=== PATIENT | female | born 1950 | race Caucasian/White ===

== ENCOUNTER 2018-05-27 00:46 | Outpatient (CLI) | payer MEDICARE, SELFPAY ==
--- NOTE | 2018-05-27 08:30 | DI.MAMMO_ITS ---
SYMPTOMS/DIAGNOSIS: SCREENING, Z12.31, FAMILY HX, Z80.3 MAMMOGRAM: Mammograms were interpreted according to the usual protocol including computer analysis with CAD system, tomosynthesis and C view imaging. Comparison with prior examinations. Breast density C. No suspicious masses or microcalcifications are seen. There is no definite evidence of malignancy. IMPRESSION: Negative mammogram. Routine screening is recommended. Category I. MQSA ASSESSMENT OF FINDINGS: Negative. Category 1. Patient will receive a letter notifying them of these results. Bi-RADS category C. The breasts are heterogeneously dense, which may obscure small masses.
[2018-05-27 09:21] LABS: ALT 24 U/L (12-78); AST 20 U/L (15-37); Albumin 3.9 g/dL (3.4-5.0); Alkaline Phosphatase 82 U/L (46-116); Anion Gap 8.6 mmol/L (3-11); BUN 19 mg/dL (7-18); Bilirubin, Total 0.6 mg/dL (0.2-1.0); CO2 28.4 mmol/L (21.0-32.0); CREATININE 1.02 mg/dL (0.55-1.02); Calcium 9.4 mg/dL (8.5-10.1); Chloride 104 mmol/L (98-107); Estimated GFR 54.39 (mL/min/1.73m2); Glucose 83 mg/dL (70-100); Potassium 4.3 mmol/L (3.5-5.1); Sodium 141 mmol/L (136-145); Total Protein 7.8 g/dL (6.4-8.2)
== END 2018-05-27 01:06 ==
PROVIDERS: PCP Family Medicine; Visit Provider Family Medicine
DX: I10 Essential (primary) hypertension (principal); Z12.31 Encounter for screening mammogram for malignant neoplasm of breast; Z80.3 Family history of malignant neoplasm of breast
CPT/HCPCS: 36415; 77063; 77067; 80053

== ENCOUNTER 2019-07-03 03:07 | Outpatient (CLI) | payer MEDICARE, SELFPAY ==
[2019-07-03 08:28] LABS: ALT 25 U/L (14-59); AST 22 U/L (15-37); Albumin 3.9 g/dL (3.4-5.0); Alkaline Phosphatase 79 U/L (46-116); Anion Gap 9.1 mmol/L (3-11); BUN 14 mg/dL (7-18); Bilirubin, Total 0.3 mg/dL (0.2-1.0); CO2 27.9 mmol/L (21.0-32.0); CREATININE 0.97 mg/dL (0.55-1.02); Calcium 8.9 mg/dL (8.5-10.1); Chloride 106 mmol/L (98-107); Estimated GFR 57.46 (mL/min/1.73m2); Glucose 85 mg/dL (74-106); Potassium 4.5 mmol/L (3.5-5.1); Sodium 143 mmol/L (136-145); Total Protein 7.4 g/dL (6.4-8.2)
--- NOTE | 2019-07-03 09:30 | DI.MAMMO_ITS ---
EXAM: MG MAMMO SCREENING CLINICAL HISTORY: screening Z12.31. TECHNIQUE: Bilateral full field digital CC and MLO mammographic images were obtained with 3D tomosyn thesis and utilizing computer aided detection (CAD). COMPARISON: Available for comparison. FINDINGS: Masses/Architectural Distortion: None seen. Microcalcifications: No suspicious pleomorphic-type are seen. Skin Thickening/Nipple Retraction: None. IMPRESSION: 1. No significant interval change with no specific features of malignancy noted. 2. Unless there is more urgent need, screening mammography is recommended, as per [place] [employer] guidelines. ACR BI-RAD Category- 1 Negative Breast Density - Category C - Heterogeneously dense The mammogram demonstrates the patient's breast tissue is dense. Dense breast tissue is very common a nd is not abnormal but dense breast tissue can make it harder to find cancer on a mammogram. Also, de nse breast tissue may increase their breast cancer risk. This information about the result of the [facility] mogram report was provided to the patient to raise their awareness. Use this report when you speak wi th the patient about their risks for breast cancer, which includes their family history. At that time , you may recommend for more screening tests (Ultrasound or MRI) as they might be useful based on the ir risk. A negative radiographic report should not delay biopsy if a dominant or clinically suspicious mass is present. Up to ten percent of cancers are not identified on mammography. A negative report may reinforce clinical impression. Adenosis and dense breasts may obscure an underlying neoplasm. False positive reports average 6 to 10%. Patient will receive a letter notifying them of these results.
== END 2019-07-03 03:27 ==
PROVIDERS: PCP Family Medicine; Visit Provider Family Medicine
DX: Z12.31 Encounter for screening mammogram for malignant neoplasm of breast (principal); I10 Essential (primary) hypertension
CPT/HCPCS: 36415; 77063; 77067; 80053

== ENCOUNTER 2020-03-12 07:39 | Outpatient (CLI) | payer MEDICARE, SELFPAY ==
[2020-03-13 12:52] LABS: COVID-19 RT-PCR Result NEGATIVE (Negative)
== END 2020-03-12 07:59 ==
PROVIDERS: PCP Family Medicine; Visit Provider Ophthalmology Retina Specialist
DX: Z01.812 Encounter for preprocedural laboratory examination (principal); Z11.59 Encounter for screening for other viral diseases
CPT/HCPCS: U0003

== ENCOUNTER 2020-04-16 03:32 | Outpatient (CLI) | payer MEDICARE, SELFPAY ==
[2020-04-20 08:55] LABS: SARS-CoV-2 RNA Source Nasal/Nares
[2020-04-20 08:56] LABS: SARS-CoV-2 RNA Not Detected (NotDetected)
== END 2020-04-16 03:52 ==
PROVIDERS: PCP Family Medicine; Visit Provider Ophthalmology Retina Specialist
DX: Z01.818 Encounter for other preprocedural examination (principal)
CPT/HCPCS: U0003

== ENCOUNTER 2020-07-05 00:43 | Outpatient (CLI) | payer MEDICARE, SELFPAY ==
--- NOTE | 2020-07-05 06:30 | DI.MAMMO_ITS ---
EXAM: MG MAMMO SCREENING CLINICAL HISTORY: screening,z12.39. TECHNIQUE: Bilateral full field digital CC and MLO mammographic images were obtained with 3D tomosyn thesis and utilizing computer aided detection (CAD). COMPARISON: Prior mammograms dating back to 2011, the most recent being June 2019. Her mother w as diagnosed breast cancer premenopausal. FINDINGS: Fibroglandular tissue is moderately dense, this decreasing the sensitivity mammogram for finding hidd en underlying lesions. No new significant radiograph findings in left breast. In the right breast there is an area of asymm etric density evident on the MLO view slightly more prominent than previous studies located 6 centime ebonie in from the nipple. No malignant-appearing microcalcification groups in this region. No new sk in thickening. No retraction IMPRESSION: No radiographic evidence of malignancy left breast. Asymmetric area of density right breast MLO view as described above. Recommend spot compression MLO and straight lateral 3D views. Also possible ultrasound. BI-RADS Category 0 - Assessment Incomplete: Need additional imaging evaluation Breast Density - Category C - Heterogeneously dense Breast density Category C or D implies that the patient has dense breast tissue. Dense breast tissue can make it harder to find cancer on a mammogram. Dense breast tissue is also associated with an incr eased risk of breast cancer. This information about the result of the mammogram report was provided to the patient to raise their awareness. Use this report when you speak with the patient about their risks for breast cancer, which includes their family history. At that time, you may recommend additional screening tests (Ultrasoun d or MRI) as these tests may add significant information. A negative radiographic report should not delay biopsy if a dominant or clinically suspicious mass is present. Up to ten percent of cancers are not identified on mammography. A negative report may reinforce clinical impression. Adenosis and dense breasts may obscure an underlying neoplasm. False positive reports average 6 to 10%. Patient will receive a letter notifying them of these results.
== END 2020-07-05 00:44 ==
LOC: DI 00:43
PROVIDERS: PCP Family Medicine; Visit Provider Physician Assistant
DX: Z12.31 Encounter for screening mammogram for malignant neoplasm of breast (principal); R92.8 Other abnormal and inconclusive findings on diagnostic imaging of breast; Z80.3 Family history of malignant neoplasm of breast
CPT/HCPCS: 77063; 77067

== ENCOUNTER 2020-07-05 01:50 | Outpatient (CLI) | payer MEDICARE, SELFPAY ==
[2020-07-05 09:26] LABS: ALT 25 U/L (14-59); AST 19 U/L (15-37); Albumin 3.7 g/dL (3.4-5.0); Alkaline Phosphatase 75 U/L (46-116); Anion Gap 5.8 mmol/L (3-11); BUN 13 mg/dL (7-18); Bilirubin, Total 0.3 mg/dL (0.2-1.0); CO2 28.2 mmol/L (21.0-32.0); CREATININE 0.9 mg/dL (0.55-1.02); Calcium 9.2 mg/dL (8.5-10.1); Calculated LDL 103 mg/dL (<100); Chloride 104 mmol/L (98-107); Cholesterol 204 mg/dL (<200); Glucose 87 mg/dL (74-106); HDL Cholesterol 87 mg/dL (40-60); Sodium 138 mmol/L (136-145); Total Protein 7.6 g/dL (6.4-8.2); Triglyceride 72 mg/dL (<150)
== END 2020-07-05 01:51 | disposition home or self-care (01) ==
LOC: LBO 01:50
PROVIDERS: Physician Assistant; PCP Family Medicine; Visit Provider Nurse Practitioner Family
DX: I10 Essential (primary) hypertension (principal)
CPT/HCPCS: 36415; 80053; 80061

== ENCOUNTER 2020-07-09 01:03 | Outpatient (CLI) | payer MEDICARE, SELFPAY ==
--- NOTE | 2020-07-09 09:15 | DI.MAMMO_ITS ---
EXAM: MG MAMMO SCREEN CALL BACK UNI CLINICAL HISTORY: F/U MAMMO, RT ASYMMETRIC DENSITY, TECHNIQUE: Spot compression views with tomographic imaging were performed. COMPARISON: 2011 through 05 July 2020 FINDINGS: An MLO spot compression view was performed of the upper and central right breast for an area of asymm etric density. No suspicious masses or suspicious microcalcifications are seen. No persistent abnormality is seen on the additional views performed. The findings are consistent wit h overlying fibroglandular tissue. There has been no significant change from prior exams. IMPRESSION: BI-RADS Category 1, Negative Yearly screening mammography is recommended. Breast Density - Category C - Heterogeneously dense .
== END 2020-07-09 01:04 ==
PROVIDERS: PCP Family Medicine; Visit Provider Physician Assistant
DX: Z12.31 Encounter for screening mammogram for malignant neoplasm of breast (principal); R92.8 Other abnormal and inconclusive findings on diagnostic imaging of breast; N64.59 Other signs and symptoms in breast
CPT/HCPCS: 77063; 77067

== ENCOUNTER 2020-09-27 06:55 | Day surgery (SDC) | payer MEDICARE, SELFPAY ==
[2020-09-27 07:11] VITALS: BP 135/73; PULSE 56; RESP 16; TEMP 35.9; O2SAT 99
[2020-09-27] MEDS: Tropicam./Phenyleph. (1/2.5%) 5 ML BTL OD ×3 (07:24→07:34)
--- NOTE | 2020-09-27 07:31 | W.ANESPRE ---
General Info Date of Service Date Performed: 09/27/20 Height: 5 ft 1.02 in Weight: 70.76 kg Body Mass Index (BMI): 29.4 Surgical Procedure: Operation Date: 09/27/20 08:40 Proposed Procedures Side Surgeon p Cataract Extraction with IOL Implant Right Montez Angeles MD Meds Allergies and Home Medications Allergies Allergy/AdvReac Type Severity Reaction Status Date / Time No Known Allergies Allergy Unverified 09/22/20 14:46 Home Medication Medication Instructions Recorded enalapril maleate [Vasotec] 5 mg PO DAILY 09/27/20 Current Visit Medications: Current Medications Generic Name Dose Route Start Last Admin Trade Name Freq PRN Reason Stop Dose Admin Acetaminophen 1,000 mg 09/27/20 06:00 Acetaminophen 500 Mg Tab PO Q4H PRN PRN Miscellaneous Medication 0 ml 09/27/20 06:00 Prednisolone 1%, Moxifloxacin 0.5%, Nepafenac 0.1% 5ml Btl OD DIRECTED NO Miscellaneous Medication 0 ml 09/27/20 06:00 09/27/20 07:24 Tropicam./Phenyleph. (1/2.5%) 5 Ml Btl OD 1 drp DIRECTED NO Administration Tetracaine HCl 0 ml 09/27/20 06:00 Tetracaine 0.5% 4 Ml Btl OD DIRECTED NO PFSH Active Problems Active Problems: Problem Status Onset Code Nuclear sclerotic cataract of right eye H25.11 Essential hypertension I10 Family history of breast cancer 02/04/14 Z80.3 Raynauds syndrome I73.00 Abnormal mammogram R92.8 Medical History Medical History Diverticulosis Menopause (05/16/11) Smoker unmotivated to quit (05/13/15) quit in August 2019 Surgical History Surgical History (Updated 09/22/20 @ 14:45 by Danny Dotson) section x 2 Hx of eye surgery Tobacco Smoking/Tobacco Use Status: Former Tobacco Use Passive smoking exposure: Yes Quit Status: has quit before Second hand exposure: Yes Alcohol Alcohol Intake: current Alcohol intake frequency: 0-2 drinks per day Alcohol type: hard liquor Substance Use Substance use: Never Substance use type: does not use Vital Signs and Lab Results Vital Signs Most Recent Vital Signs in EMR: Most Recent Vital Signs Temp Pulse Resp BP Pulse Ox 35.9 C L 56 L 16 135/73 99 09/27/20 07:11 09/27/20 07:11 09/27/20 07:11 09/27/20 07:11 09/27/20 07:11 Lab Results Blood Type / Crossmatch: No Data to Display Complete Blood Count: White Blood Count 7.84 k/cumm (4.4-10.8) 05/24/17 07:49 05/24/17 Red Blood Count 4.33 m/cumm (4.00-5.20) 05/24/17 07:49 05/24/17 Hemoglobin 13.9 g/dL (12.0-15.5) 05/24/17 07:49 05/24/17 Hematocrit 41.0 % (36.0-46.0) 05/24/17 07:49 05/24/17 Platelet Count 289 x1000/uL (130-400) 05/24/17 07:49 05/24/17 Complete Metabolic Panel: Sodium Level 138 mmol/L (136-145) 07/05/20 07:54 07/05/20 Potassium Level 5.0 mmol/L (3.5-5.1) 07/05/20 07:54 07/05/20 Chloride Level 104 mmol/L (98-107) 07/05/20 07:54 07/05/20 Carbon Dioxide Level 28.2 mmol/L (21.0-32.0) 07/05/20 07:54 07/05/20 Blood Urea Nitrogen 13 mg/dL (7-18) 07/05/20 07:54 07/05/20 Creatinine 0.9 mg/dL (0.55-1.02) 07/05/20 07:54 07/05/20 Calcium Level 9.2 mg/dL (8.5-10.1) 07/05/20 07:54 07/05/20 Albumin 3.7 g/dL (3.4-5.0) 07/05/20 07:54 07/05/20 Glucose Level 87 mg/dL (74-106) 07/05/20 07:54 07/05/20 Liver Function Panel: Alanine Aminotransferase (ALT/SGPT) 25 U/L (14-59) 07/05/20 07:54 07/05/20 Aspartate Amino Transf (AST/SGOT) 19 U/L (15-37) 07/05/20 07:54 07/05/20 Coagulation Panel: No Data to Display Cardiac Panel: No Data to Display Arterial Blood Gas: No Data to Display Venous Blood Gas: No Data to Display Pancreas Panel: No Data to Display Thyroid Panel: No Data to Display Infectious Disease: Coronavirus (COVID-19)(PCR) Not Applicable 03/12/20 09:51 03/12/20 Blood Cultures: No Data to Display Toxicology Panel: No Data to Display Anesthesia Assessment and Plan Anesthesia History Personal History: No History of Anesthesia Complications Family History: No Family History of Anesthesia Complications Exercise Tolerance Exercise Tolerance: Metabolic Equivalents>4 Pertinent Negatives Pertinent Negatives: No Symptoms of GERD Cardiac & Pulmonary Exam Cardiac Exam: Normal S1/S2 Heart Sounds Pulmonary Exam: Clear Bilateral Breath Sounds Airway Exam Known Difficult Airway: No Mallampati Class: 1 Mouth Opening: Normal (> 3cm) Thyromental Distance: Greater than 3 cm Neck Range of Motion: Full ROM Neck Circumference: Normal Teeth Condition: Loose or Chipped and Dental Caries ASA Classification ASA Score: ASA 2 Emergency Case?: No NPO Status NPO Status: NPO Clears >2 hours, Solids >8 hours Anesthesia Plan Anesthesia Technique: MAC Anesthesia Airway Planned: Natural Airway Monitors Used: Standard Monitors
[2020-09-27 07:34] VITALS: BMI 29.4
[2020-09-27] MEDS: Balanced Salt Soln.-PLUS 500 ML BAG (08:31)
[2020-09-27] MEDS: Tetracaine 0.5% 4 ML BTL OD (08:31)
[2020-09-27] MEDS: Duovisc Viscoelastic System EACH 1 EACH (08:32)
[2020-09-27] MEDS: Lidocaine 2% Jelly 6 ML SYR (08:33)
[2020-09-27] MEDS: Lidocaine 1% Pres-Free 5 ML VIAL (08:33)
[2020-09-27] MEDS: Povidone-Iodine Ophth 30 ML BTL (08:35)
[2020-09-27] MEDS: Trypan Blue 0.06% 0.5 ML SYR (08:35)
--- NOTE | 2020-09-27 08:53 | W.PM.DSUDISC ---
Discharge Plan Disposition Patient Disposition: HOME Condition: Good Discharge Details Attending Provider: Montez Angeles Primary Care Provider: Faustino Harmon Home Meds and New Rx's Prescriptions: No Action enalapril maleate [Vasotec] 5 mg tablet 5 mg PO DAILY RF: 0 Discharge Instructions Stand Alone Forms: Post-op Block Cataract, Post-op Topical Cataract, Press Ganey (DSU) Discharge Orders Discharge Orders: Discharge Order (Routine); Ordered 09/27/20 Ordered By: Montez Angeles DS: Diagnosis Discharge Diagnosis (1) Nuclear sclerotic cataract of right eye: Status: Resolved
--- NOTE | 2020-09-27 08:54 | ROE_ITS ---
Date of service: 09/27/20 Time of Service: 08:54 Operative Note Operative Note DATE OF PROCEDURE: 09/27/20 PRE-OP DIAGNOSIS: Nuclear cataract, right eye High hyperopia POST-OP DIAGNOSIS: same PROCEDURE: Cataract extraction using phacoemulsification with intraocular lens implantation, right eye, using capsular staining with Vision Blue SURGEON: Montez Angeles Refer to Anesthesia Record PATHOLOGY: none sent COMPLICATIONS: None Patient was transported to: same day Patient's condition: stable Implants: [employer] / [employer] Tecnis [id number] Indications: Progressive visual loss due to cataract, right eye Procedure Description: CATARACT SURGERY OPERATIVE REPORT PREOPERATIVE DIAGNOSIS: 1. Nuclear cataract, right eye 2. Poor red reflex secondary to #1 3. High hyperopia POSTOPERATIVE DIAGNOSIS: Same OPERATION: 1. Cataract extraction using phacoemulsification with posterior chamber intraocular lens implant, right eye. 2. Capsular staining with Vision Blue IOL: IOL Rag Cutting Machine Tender/Model: [employer] / CARLA Tecnis [id number] IOL Power: + 29.5 diopters IOL Serial Number: [id number] Optic Diameter: 6.0mm Haptic/Overall Diameter: 13.0mm PHACO INFO: Cisco Mokaurion Vision System with OZil and Active Fluidics Cumulative Dispersed Energy (CDE): 16.95 seconds SURGEON: Montez Angeles MD, BREANA ANESTHESIA: Monitored Anesthesia Care (MAC), with local sub-tenon's anesthetic infiltration COMPLICATIONS: None SPECIMENS: None INDICATIONS FOR PROCEDURE: The patient is a 69-year-old lady with history of diminished visual acuity in her right eye secondary to the development of nuclear cataract. She has a history of high hyperopia. She has undergone retinal detachment repair in the left eye and subsequent cataract surgery in the left eye in 2016. She now presents for cataract surgery of the right eye. PROCEDURE: The correct surgical eye was identified and marked as the right eye and the pupil was dilated in the preoperative area using mydriatics and cycloplegics. The dilated pupil size was 6.0 mm. Oral sedation was administered in the form of an Imprimis MKO Melt (midazolam 3mg/ketamine 25mg/ondansetron 2mg). The patient was brought to the operating room where cardiopulmonary monitoring was instituted and surgical time-out was performed, confirming the correct operative eye and IOL power. Topical anesthesia was administered and ophthalmic povidone-iodine 5% was instilled into the conjunctival fornices. Lidocaine gel was applied to the cornea and the penny-ocular area was prepped with Betadine 10% solution and draped in the usual sterile fashion for intraocular surgery, including an aperture drape. A Tegaderm transparent film dressing was cut in half and used to cover the lashes and lid margins. Care was taken to sequester the lashes and lid margins under the Tegaderm dressing. A lid speculum was placed between the lids of the operative eye and the Davy-Steven operating microscope was maneuvered into position. Trisha scissors were then used to make a conjunctival buttonhole approximately 6mm posterior to the limbus in the inferonasal quadrant. Blunt dissection was carried out to expose bare sclera, and a blunt-tipped sub-tenon?s anesthesia cannula was introduced and passed posteriorly along the globe where non- preserved plain lidocaine was injected into posterior sub-Tenon?s space. A sideport knife was used to make a paracentesis port inferotemporally. Intraocular phenylephrine/lidocaine was injected into the anterior chamber. Air was injected into the anterior chamber, followed by Vision Blue, which was painted over the anterior capsule and then irrigated out with BSS. The anterior chamber was filled with viscoelastic. A 2.4mm keratome knife was used to create a half-thickness groove at the limbus and then to construct a three-plane near- clear corneal tunnel extending 2.0mm into clear cornea superiortemporally. A flap was raised on the anterior capsule and capsulorhexis forceps were used to complete a continuous curvilinear capsulorhexis of 4.8 mm. The anterior chamber was noted to be quite shallow. Abundant dispersive viscoelastic was used to protect the corneal endothelium. Balanced salt solution was then used to perform cortical cleaving hydrodissection and nuclear hydrodelineation until the lens could be freely rotated within the capsular bag. The lens nucleus was then disassembled and removed within the capsular bag and iris plane using phacoemulsification. Residual cortical material was removed using the I/A handpiece. The posterior capsule was carefully polished to remove as much residual lens epithelial cells as safely possible. The capsular bag was then inflated and the anterior chamber deepened with viscoelastic. The lens implant described above was inserted into the capsular bag using the CARLA [place] Injector. A Kuglen hook was used to dial the IOL into position. Residual viscoelastic was then removed first from posterior to the IOL, then from the anterior chamber using the I/A handpiece. The lens implant was noted to center nicely within the capsular bag. The incisions were stromally hydrated, and the anterior chamber was reformed using BSS. Then 0.5cc of moxifloxacin 1.0mg/ml were injected into the capsular bag and anterior chamber. The incisions were checked with a Weck spear and found to be secure. Several drops of ophthalmic povidone-iodine 5% were then applied to the eye followed by two drops of Imprimis combination prednisolone/moxifloxacin/nepafenac solution. The drapes were removed and a clear plastic protective eye shield was placed over the eye. The patient was then returned to Same Day Surgery in stable condition.
[2020-09-27 08:59] VITALS: BP 136/81; PULSE 56; RESP 16; TEMP 36.2; O2SAT 100
--- NOTE | 2020-09-27 09:16 | W.ANESPOSTOP ---
Postoperative Evaluation Date, Time and Location Date Performed: 09/27/20 Time Performed: 09:16 Patient Location: Day Surgery Unit Vital Signs Most Recent Imported Vital Signs: Most Recent Vital Signs Temp Pulse Resp BP Pulse Ox 36.2 C L 56 L 16 136/81 100 09/27/20 08:59 09/27/20 08:59 09/27/20 08:59 09/27/20 08:59 09/27/20 08:59 Assessment Mental Status: Awake (Alert & Oriented to Patient Baseline) Airway and Respiratory Function: Patent airway with normal (patient baseline) respiratory exam Cardiovascular Function: Hemodynamically Stable Hydration Status: Adequately Hydrated Nausea & Vomiting: No Nausea or Vomiting Pain: Pt. Denies Any Pain Peripheral Nerve Block: Other (Local by Dr. Angeles)
== END 2020-09-27 09:20 | disposition home or self-care (01) ==
PROVIDERS: PCP Family Medicine; Visit Provider Ophthalmology
PROC: (CPT 66982; principal; 2020-09-27 08:30)
DX: H25.11 Age-related nuclear cataract, right eye (principal); H52.01 Hypermetropia, right eye; Z98.42 Cataract extraction status, left eye; Z96.1 Presence of intraocular lens; Z86.69 Personal history of other diseases of the nervous system and sense organs
CPT/HCPCS: 66982; V2632

== ENCOUNTER 2021-08-08 02:02 | Outpatient (CLI) | payer MEDICARE, SELFPAY ==
--- NOTE | 2021-08-08 06:30 | DI.MAMMO_ITS ---
Exam(s) MAMMO SCREENING EXAM: MAMMO SCREENING CLINICAL HISTORY: screening,z12.39. TECHNIQUE: Bilateral full field digital CC and MLO mammographic images were obtained with 3D tomosyn thesis and utilizing computer aided detection (CAD). COMPARISON: Prior mammograms were reviewed, the most recent being June 2020. Significant family history. Her mother was diagnosed with breast cancer prior to age 50. FINDINGS: There has been no significant change in the appearance and distribution of the fibroglandular tissue. There are no new spiculated masses nor malignant appearing microcalcification groups. In the left breast on 3D cc imaging there is a asymmetric density-possible new nodule which measures 4 millimeters and is located lower outer quadrant. Has appearance of a possible benign lymph node wa s not previously present and is not a typical location for a benign lymph node. There are no malignant-appearing microcalcification groups in either breast. There is no significant architectural distortion nor skin thickening-retraction. IMPRESSION: 1. No radiographic evidence of malignancy in right breast. 2. Left breast asymmetric density-possible nodule. Spot compression view and ultrasound recommended BI-RADS Category 0 - Assessment Incomplete: Need additional imaging evaluation Breast Density - Category C - Heterogeneously dense Breast density Category C or D implies that the patient has dense breast tissue. Dense breast tissue can make it harder to find cancer on a mammogram. Dense breast tissue is also associated with an incr eased risk of breast cancer. This information about the result of the mammogram report was provided to the patient to raise their awareness. Use this report when you speak with the patient about their risks for breast cancer, which includes their family history. At that time, you may recommend additional screening tests (Ultrasoun d or MRI) as these tests may add significant information. A negative radiographic report should not delay biopsy if a dominant or clinically suspicious mass is present. Up to ten percent of cancers are not identified on mammography. A negative report may reinforce clinical impression. Adenosis and dense breasts may obscure an underlying neoplasm. False positive reports average 6 to 10%. Patient will receive a letter notifying them of these results.
== END 2021-08-08 02:22 ==
PROVIDERS: PCP Nurse Practitioner; Visit Provider Nurse Practitioner
DX: Z12.31 Encounter for screening mammogram for malignant neoplasm of breast (principal); R92.8 Other abnormal and inconclusive findings on diagnostic imaging of breast; Z80.3 Family history of malignant neoplasm of breast
CPT/HCPCS: 77063; 77067

== ENCOUNTER 2021-08-08 03:15 | Outpatient (CLI) | payer MEDICARE, SELFPAY ==
[2021-08-08 08:19] LABS: BUN 18 mg/dL (7-18); Calcium 9.1 mg/dL (8.5-10.1); Chloride 102 mmol/L (98-107); Estimated GFR 55.14 (mL/min/1.73m2); Glucose 84 mg/dL (74-106); Potassium 4.6 mmol/L (3.5-5.1); Sodium 137 mmol/L (136-145)
== END 2021-08-08 03:16 | disposition home or self-care (01) ==
LOC: LBO 03:15
PROVIDERS: PCP Nurse Practitioner; Visit Provider Nurse Practitioner
DX: I10 Essential (primary) hypertension (principal)
CPT/HCPCS: 36415; 80048

== ENCOUNTER 2021-08-10 00:36 | Outpatient (CLI) | payer MEDICARE, SELFPAY ==
--- NOTE | 2021-08-10 13:30 | DI.MAMMO_ITS ---
Exam(s) MG MAMMO SCREEN CALL BACK UNI US BREAST LT COMPLETE EXAM: MG MAMMO SCREEN CALL BACK UNI -LEFT AND COMPLETE LEFT BREAST ULTRASOUND CLINICAL HISTORY: F/U ABNL MAMMO, ASYMMETRIC DENSITY-POSSIBLE NODULE, LT BREAST. TECHNIQUE: Unilateral spot mammographic images obtained with 3D tomosynthesisand utilizing computer aided detection (CAD). . Complete LEFT breast Ultrasound was also performed, including all 4 quadrants, the retroareolar regio n, and the ipsilateral axilla. COMPARISON: Prior mammograms were reviewed. This additional imaging was performed due to findings described on the recent screening mammogram of . FINDINGS: Additional mammographic views performed todayrender this area less concerning. Ultrasound performed today reveals significant findings in all 4 quadrants.. No ipsilateral adenopat hy. IMPRESSION: No radiographic evidence of malignancy in the left breast. Also negative complete left breast ultrasound. Appropriate follow-up is to keep this patient on a yearly mammogram schedule, with earlier imaging i f a self detected breast changes noted.. The patient was informed of these findings and recommendations prior to leaving the department today. BI-RADS Category 2 - Benign Findings Breast Density - Category C - Heterogeneously dense Breast density Category C or D implies that the patient has dense breast tissue. Dense breast tissue can make it harder to find cancer on a mammogram. Dense breast tissue is also associated with an incr eased risk of breast cancer. This information about the result of the mammogram report was provided to the patient to raise their awareness. Use this report when you speak with the patient about their risks for breast cancer, which includes their family history. At that time, you may recommend additional screening tests (Ultrasoun d or MRI) as these tests may add significant information. A negative radiographic report should not delay biopsy if a dominant or clinically suspicious mass is present. Up to ten percent of cancers are not identified on mammography. A negative report may reinforce clinical impression. Adenosis and dense breasts may obscure an underlying neoplasm. False positive reports average 6 to 10%. Patient will receive a letter notifying them of these results.
== END 2021-08-10 00:56 ==
PROVIDERS: PCP Nurse Practitioner; Visit Provider Nurse Practitioner
DX: R92.8 Other abnormal and inconclusive findings on diagnostic imaging of breast (principal)
CPT/HCPCS: 76642; 77063; 77067

== ENCOUNTER 2022-07-18 09:15 | Outpatient (CLI) | payer MEDICARE, SELFPAY | END 2022-07-18 09:16 | disposition home or self-care (01) | PROVIDERS: PCP Nurse Practitioner Family; Visit Provider Nurse Practitioner Family | DX: I49.9 Cardiac arrhythmia, unspecified (principal) | CPT/HCPCS: 93246 ==

== ENCOUNTER 2022-08-10 08:09 | Outpatient (CLI) | payer MEDICARE, SELFPAY ==
--- NOTE | 2022-08-10 12:46 | W.CARDEVENT ---
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 Minimum was 52, maximum 128 There were very rare ventricular ectopic beats There were moderately frequent atrial premature beats comprising 4.59% of total. There were multiple self-limited atrial runs. The majority of these were 45 beats in duration. There was no atrial fibrillation no high-grade AV block, no pauses greater than 3 seconds Patient had 1 symptomatic event which did not correlate to any dysrhythmia
== END 2022-08-10 08:10 | disposition home or self-care (01) ==
LOC: CARDOPNVT 08:09
PROVIDERS: PCP Nurse Practitioner Family; Visit Provider Internal Medicine Cardiovascular Disease
DX: I49.9 Cardiac arrhythmia, unspecified (principal); I49.1 Atrial premature depolarization
CPT/HCPCS: 93248

== ENCOUNTER 2022-08-14 01:46 | Outpatient (CLI) | payer MEDICARE, SELFPAY ==
--- NOTE | 2022-08-14 07:00 | DI.MAMMO_ITS ---
Exam(s) MAMMO SCREENING EXAM: MAMMO SCREENING CLINICAL HISTORY: screening,z12.39 TECHNIQUE: Mammograms were interpreted according to the usual protocol including computer analysis w Posterous CAD system, tomosynthesis and C-view imaging. COMPARISON: 2013 through 2021 FINDINGS: The breasts are composed of heterogeneously dense fibroglandular densities, Breast Density category C . No suspicious masses or suspicious microcalcifications are seen. No skin thickening or abnormal axillary lymph nodes are seen. There has been no significant change from prior exams. IMPRESSION: BI-RADS Category 1, Negative mammogram. Yearly screening mammography is recommended. Breast Density Category C, heterogeneously Dense. The mammogram demonstrates the patient's breast tissue is dense. Dense breast tissue is very common a nd is not abnormal but dense breast tissue can make it harder to find cancer on a mammogram. Also, de nse breast tissue may increase breast cancer risk. This information about the result of the mammogram report was provided to the patient to raise their awareness. Use this report when you speak with the patient about their risks for breast cancer, which includes their family history. At that time, you may recommend additional screening tests (Ultrasound or MRI) as they might be useful based on their r isk. A negative radiographic report should not delay biopsy if a dominant or clinically suspicious mass is present. Up to ten percent of cancers are not identified on mammography. A negative report may reinforce clinical impression. Adenosis and dense breasts may obscure an underlying neoplasm. False positive reports average 6 to 10%.
== END 2022-08-14 02:06 ==
LOC: DI 01:47
PROVIDERS: PCP Nurse Practitioner Family; Visit Provider Nurse Practitioner Family
DX: Z12.31 Encounter for screening mammogram for malignant neoplasm of breast (principal)
CPT/HCPCS: 77063; 77067

== ENCOUNTER 2022-08-14 02:32 | Outpatient (CLI) | payer MEDICARE, SELFPAY ==
[2022-08-14 07:38] LABS: HCT 38.3 % (36.0-46.0); HGB 12.9 g/dL (11.2-15.7); MCH 29.5 pg (27.0-33.0); MCHC 33.7 % (32.0-36.0); MCV 88 fL (80-95); MPV 9.7 fL (8.0-11.0); Platelet Count 321 10^3/uL (130-400); RBC 4.37 10^6/uL (3.93-5.22); RDW 13.1 % (11.7-14.6); RDW-SD 42.2 fL; WBC 8.22 10^3/uL (4.4-10.8)
[2022-08-14 08:08] LABS: ALT 25 U/L (14-59); AST 21 U/L (15-37); Albumin 3.6 g/dL (3.4-5.0); Alkaline Phosphatase 72 U/L (46-116); BUN 18 mg/dL (7-18); Bilirubin, Total 0.4 mg/dL (0.2-1.0); CREATININE 1.1 mg/dL (0.55-1.02); Calcium 9.2 mg/dL (8.5-10.1); Calculated LDL 113 mg/dL (<100); Chloride 102 mmol/L (98-107); Cholesterol 225 mg/dL (<200); Estimated GFR 54.39 (mL/min/1.73m2); Glucose 91 mg/dL (74-106); HDL Cholesterol 98 mg/dL (40-60); Potassium 4.3 mmol/L (3.5-5.1); Sodium 136 mmol/L (136-145); Total Protein 8.1 g/dL (6.4-8.2); Triglyceride 71 mg/dL (<150)
== END 2022-08-14 02:33 | disposition home or self-care (01) ==
LOC: LBO 02:32
PROVIDERS: PCP Nurse Practitioner Family; Visit Provider Nurse Practitioner Family
DX: I73.00 Raynaud's syndrome without gangrene (principal); I10 Essential (primary) hypertension
CPT/HCPCS: 36415; 80053; 80061; 85027

== ENCOUNTER 2022-12-27 09:54 | Outpatient (CLI) | payer MEDICARE, SELFPAY ==
[2022-12-29 15:42] LABS: SS-A Antibody 2.4 Units (<20.0); SS-B (La) Ab, IgG 4.5 Units (<20.0)
== END 2022-12-27 09:55 | disposition home or self-care (01) ==
LOC: LBO 09:55
PROVIDERS: PCP Nurse Practitioner Family; Visit Provider Physician Assistant
DX: K11.7 Disturbances of salivary secretion (principal); Z01.84 Encounter for antibody response examination
CPT/HCPCS: 36415; 86235

== ENCOUNTER 2023-10-10 07:44 | Outpatient (CLI) | payer MEDICARE, SELFPAY ==
[2023-10-10 08:39] LABS: BUN 19 mg/dL (7-18); CREATININE 1.1 mg/dL (0.55-1.02); Calcium 9.6 mg/dL (8.5-10.1); Calculated LDL 91 mg/dL (<100); Chloride 103 mmol/L (98-107); Cholesterol 195 mg/dL (<200); Estimated GFR 54.06 (mL/min/1.73m2); Glucose 93 mg/dL (74-106); HDL Cholesterol 91 mg/dL (40-60); Potassium 4.1 mmol/L (3.5-5.1); Sodium 136 mmol/L (136-145); Triglyceride 67 mg/dL (<150)
== END 2023-10-10 07:45 | disposition home or self-care (01) ==
LOC: LBO 07:44
PROVIDERS: PCP Nurse Practitioner Family; Visit Provider Nurse Practitioner Family
DX: I10 Essential (primary) hypertension (principal); I73.00 Raynaud's syndrome without gangrene; Z00.00 Encounter for general adult medical examination without abnormal findings
CPT/HCPCS: 36415; 80048; 80061

== ENCOUNTER 2024-09-05 00:54 | Outpatient (CLI) | payer MEDICARE, SELFPAY ==
[2024-09-05 08:00] LABS: Anion Gap 9.6 mmol/L (3-11); BUN 20 mg/dL (7-18); CO2 27.4 mmol/L (21.0-32.0); CREATININE 1.2 mg/dL (0.55-1.02); Calcium 9.7 mg/dL (8.5-10.1); Calculated LDL 106 mg/dL (<100); Chloride 104 mmol/L (98-107); Cholesterol 214 mg/dL (<200); Estimated GFR 48.39 (mL/min/1.73m2); Glucose 91 mg/dL (74-106); HDL Cholesterol 93 mg/dL (>or=50); Potassium 4.6 mmol/L (3.5-5.1); Sodium 141 mmol/L (136-145); Triglyceride 79 mg/dL (<150)
== END 2024-09-05 00:55 | disposition home or self-care (01) ==
LOC: LBO 00:54
PROVIDERS: PCP Nurse Practitioner Family; Visit Provider Nurse Practitioner Family
DX: I10 Essential (primary) hypertension
CPT/HCPCS: 36415; 80048; 80061

== ENCOUNTER 2024-09-09 02:07 | Outpatient (CLI) | payer MEDICARE, SELFPAY ==
--- NOTE | 2024-09-09 06:30 | DI.MAMMO_ITS ---
Exam(s) MAMMO SCREENING EXAM: MAMMO SCREENING CLINICAL HISTORY: screening,z12.39 TECHNIQUE: Bilateral full field digital CC and MLO mammographic images were obtained with 3D tomosyn thesis and utilizing computer aided detection (CAD). COMPARISON: Available for comparison. FINDINGS: Masses/Architectural Distortion: No suspicious masses or areas of architectural distortion are presen t. Microcalcifications: No suspicious pleomorphic-type are seen. Skin Thickening/Nipple Retraction: None. IMPRESSION: 1. No significant interval change with no specific features of malignancy noted. 2. Unless there is more urgent need, screening mammography is recommended, as per [place] guidelines. BI-RADS Category 1 - Negative Breast Density - Category C - Heterogeneously dense Breast density category C or D implies that the patient has dense breast tissue. Dense breast tissue is very common and is not abnormal but dense breast tissue can make it harder to find cancer on a ma mmogram. Also, dense breast tissue may increase their breast cancer risk. This information about the result of the mammogram report was provided to the patient to raise their awareness. Use this report when you speak with the patient about their risks for breast cancer, which includes their family hist ory. At that time, you may recommend for more screening tests (Ultrasound or MRI) as they might be us eful based on their risk. A negative radiographic report should not delay biopsy if a dominant or clinically suspicious mass is present. Up to ten percent of cancers are not identified on mammography. A negative report may reinforce clinical impression. Adenosis and dense breasts may obscure an underlying neoplasm. False positive reports average 6 to 10%. Patient will receive a letter notifying them of these results.
== END 2024-09-09 02:27 ==
LOC: DI 02:08
PROVIDERS: PCP Nurse Practitioner Family; Visit Provider Nurse Practitioner Family
DX: Z12.31 Encounter for screening mammogram for malignant neoplasm of breast (principal); R92.333 Mammographic heterogeneous density, bilateral breasts
CPT/HCPCS: 77063; 77067

== ENCOUNTER 2024-09-18 11:18 | Outpatient (CLI) | payer MEDICARE, SELFPAY ==
--- NOTE | 2024-09-18 08:15 | DI.RAD_ITS ---
Exam(s) XR KNEE RT 4V AP,LAT,YAAKOV,PAT EXAM: XR KNEE RT 4V AP,LAT,YAAKOV,PAT CLINICAL HISTORY: BILATERAL KNEE PAIN. TECHNIQUE: 2D digital imaging was performed of the right knee. Four views obtained. Merchant, AP, la teral and PA tunnel views were obtained. COMPARISON: There are no priors for comparison. FINDINGS: BONES: No acute fracture is present. No bony destructive lesion is seen. JOINTS: There are marked degenerative changes seen in the right knee involving all 3 joint compartmen ts characterized by joint space narrowing and osteophytes. The findings are most marked in the media l femoral tibial joint. There is mild medial subluxation of the distal femur relative to the proxima l tibia. There is a joint effusion present. There is marked narrowing seen in the femoral tibial hector ints. SOFT TISSUE: Chronic appearing soft tissue calcifications are seen adjacent to the medial femoral tib ial joint. IMPRESSION: Marked osteoarthritis of the right knee. DATA REPOSITORY: RADIATION DOSE DELIVERED:
--- NOTE | 2024-09-18 08:15 | DI.RAD_ITS ---
Exam(s) XR KNEE LT 4V AP,LAT,YAAKOV,PAT EXAM: XR KNEE LT 4V AP,LAT,YAAKOV,PAT CLINICAL HISTORY: BILAT KNEE PAIN. TECHNIQUE: 2D digital imaging was performed of the left knee. Four images were obtained. Merchant, AP, lateral and PA tunnel views were obtained. COMPARISON: No exams were available for comparison FINDINGS: BONES: No acute fracture is present. No bony destructive lesion is seen. JOINTS: There are ecqy-qd-owfhcmgt degenerative changes seen in the left knee characterized by joint space narrowing and osteophytes. The findings are most marked at the patellofemoral and the medial f emoral tibial joint. There is a small joint effusion. No loose body. SOFT TISSUE: Normal. IMPRESSION: Fzju-yq-tgdbkzmd degenerative changes of the left knee. DATA REPOSITORY: RADIATION DOSE DELIVERED:
== END 2024-09-18 11:19 | disposition home or self-care (01) ==
LOC: DIORS 11:18
PROVIDERS: PCP Nurse Practitioner Family; Referring Provider Nurse Practitioner Family; Visit Provider Physician Assistant
DX: M17.11 Unilateral primary osteoarthritis, right knee; M17.12 Unilateral primary osteoarthritis, left knee
CPT/HCPCS: 20610; 99203; J1010; 73564

== ENCOUNTER → 2024-09-24 08:14 | Outpatient (BNVA) | payer MEDICARE, SELFPAY | PROVIDERS: PCP Nurse Practitioner Family; Referring Provider Nurse Practitioner Family; Visit Provider Podiatrist | DX: M21.612 Bunion of left foot (principal); M20.42 Other hammer toe(s) (acquired), left foot; L60.3 Nail dystrophy; L84 Corns and callosities; L97.521 Non-pressure chronic ulcer of other part of left foot limited to breakdown of skin | CPT/HCPCS: 11730; 97597 ==

== ENCOUNTER 2024-10-01 02:04 | Outpatient (CLI) | payer MEDICARE, SELFPAY ==
--- NOTE | 2024-10-01 10:54 | DI.RAD_ITS ---
Exam(s) XR FOOT LT COMPLETE EXAM: XR FOOT LT COMPLETE CLINICAL HISTORY: lt foot Painful bunion and hammertoes lt foot,m21.612,m20.42. TECHNIQUE: 2D digital imaging was performed of the left foot. Three images were obtained. AP, obli que and lateral views were obtained. COMPARISON: No exams were available for comparison FINDINGS: BONES: No acute fracture is present. No bony destructive lesion is seen. There is an enthesophyte at the posterior calcaneus. JOINTS: No dislocation present. There is a hallux valgus deformity. There is also moderate narrowing of the 1st MTP joint. There are hammertoe deformities of the 2nd through 4th toes. SOFT TISSUE: Normal. IMPRESSION: Hallux valgus deformity and hammertoe deformities as described. DATA REPOSITORY: RADIATION DOSE DELIVERED:
== END 2024-10-01 02:24 ==
LOC: DI 02:04
PROVIDERS: PCP Nurse Practitioner Family; Visit Provider Podiatrist
DX: M21.612 Bunion of left foot (principal); M20.42 Other hammer toe(s) (acquired), left foot
CPT/HCPCS: 73630

== ENCOUNTER 2024-10-15 08:14 | Day surgery (SDC) | payer MEDICARE, SELFPAY ==
[2024-10-15 08:37] VITALS: BP 133/74; PULSE 68; RESP 16; TEMP 36.1; O2SAT 99
[2024-10-15] MEDS: Lactated Ringers 1,000 ML 80 ML IV (08:50)
--- NOTE | 2024-10-15 09:04 | W.COLOREPORT ---
Date of service: 10/15/24 Time of Service: 09:04 Colonoscopy Report Procedure Description: PROCEDURES PERFORMED: 1. Colonoscopy with cold forceps polypectomy PREOPERATIVE DIAGNOSIS: Surveillance colonoscopy POSTOPERATIVE DIAGNOSIS: Mild pandiverticulosis, rectal polyp SURGEON: Tova Saleh MD INDICATION FOR PROCEDURE: the patient is a 73-year-old woman due for surveillance colonoscopy. Prior colonoscopy normal. No symptoms of concern. No family history of colon cancer. FINDINGS: Minimal/mild, scattered diverticular changes throughout the entire colon. No inflammation. No significant hemorrhoidal disease. Polyps: In the distal rectum, a flat 2-3 mm sessile rectal polyp was removed with cold forceps technique. It may be hyperplastic. SURVEILLANCE interval/FOLLOW-UP: Pending path results of the polyp - most likely 7 to 10 years. If villous or sessile serrated histology, then 3 years. SPECIMENS: Yes EBL: Minimal COMPLICATIONS: None QUALITY of prep: Excellent Procedure in detail: The patient gave written consent and was in agreement with the indications, the potential risks as well as the benefits of the procedure. They were taken to the endoscopy suite and laid in the left lateral decubitus position. A timeout was performed and anesthesia was administered which was tolerated well. I started the procedure. Digital rectal and visual examination was performed and grossly within normal limits. A well-lubricated flexible colonoscope was then introduced and passed without any notable difficulty all the way to the cecum identified by the ileocecal valve and the appendiceal orifice. The terminal ileum was intubated and looked normal. The scope was then slowly withdrawn with the above-noted findings. The patient tolerated the procedure well and was taken to the PACU in hemodynamically stable condition.
--- NOTE | 2024-10-15 09:05 | W.PM.DSUDISC ---
Date of service: 10/15/24 Discharge Plan Disposition Patient Disposition: Home Condition: Good Discharge Details Attending Provider: Calderon Saleh Primary Care Provider: Shannan Soto Home Meds and New Rx's Prescriptions: No Action enalapril maleate [Vasotec] 5 mg tablet 5 mg PO DAILY Qty: 90 4RF polyethylene glycol 3350 17 gram/dose powder 238 g PO ONCE Qty: 238 0RF Rx Instructions: take per colonoscopy instructions bisacodyl [Dulcolax (bisacodyl)] 5 mg tablet,delayed release (DR/EC) 5 mg PO ONCE Qty: 4 0RF Rx Instructions: take per colonoscopy instructions neomycin-polymyxin B-dexameth [Maxitrol] 3.5mg/mL-10,000 unit/mL-0.1 % drops,suspension See Rx Instructions .Route Q12H Qty: 5 0RF Rx Instructions: Apply to the toe every 12 hours; Apply to the TOE. Do NOT apply to eyes. Discard once the toe is healed. Patient had a spill so ran out early Discharge Instructions Additional Instructions: FINDINGS: Overall nothing to worry about. A small polyp was found and removed. You do have diverticular disease which is extremely common, benign and nothing needs to be done about it. Depending on the path results of the polyp, you may need to repeat a colonoscopy as soon as 3 years but most likely 7 to 10 years from now. Activity:: Activity as Tolerated Diet:: As Tolerated Discharge Orders Discharge Orders: Discharge Order (Routine); Ordered 10/15/24 Ordered By: Calderon Saleh
[2024-10-15 09:12] VITALS: BMI 29.8
--- NOTE | 2024-10-15 09:12 | ANES.PREOP_ITS ---
General Info Date of Service Date Performed: 10/15/24 Height: 5 ft 1 in Weight: 71.6 kg Body Mass Index (BMI): 29.8 Surgical Procedure: Operation Date: 10/15/24 09:35 Proposed Procedure Side Surgeon p Colonoscopy Calderon Saleh MD Actual Procedure Side Surgeon p Colonoscopy Not Applicable Calderon Saleh MD Pre-Op Diagnosis Post-Op Diagnosis Screening colonoscopy Meds Allergies and Home Medications Allergies Allergy/AdvReac Type Severity Reaction Status Date / Time No Known Allergies Allergy Verified 10/15/24 08:34 Home Medication ?Medication ?Instructions ?Recorded enalapril maleate 5 mg tablet 5 mg PO DAILY #90 tabs 08/14/24 (Vasotec) bisacodyl 5 mg tablet,delayed 5 mg PO ONCE colonscopy bowel prep 10/01/24 release (Dulcolax (bisacodyl)) #4 tabs oknlkthz-kaumrtzmy-sptlxlnq 3.5 See Rx Instructions .Route Q12H #5 10/01/24 mg/mL-10,000 unit/mL-0.1% eye mL drops (Maxitrol) polyethylene glycol 3350 17 238 g PO ONCE colonoscopy prep 10/01/24 gram/dose oral powder #238 grams Current Visit Medications: Current Medications Generic Name Dose Route Start Last Admin Trade Name Freq PRN Reason Stop Dose Admin Ringer's Solution 1,000 mls @ 80 mls/hr 10/15/24 06:00 10/15/24 08:50 IV 10/15/24 23:59 80 mls/hr INFUSION NO Administration IV Miscellaneous Supplies 1 each 10/15/24 06:00 Iv Access IV 10/15/24 23:59 DIRECTED NO Sodium Chloride 0 ml 10/15/24 06:00 Normal Saline Flush 10 Ml Syr IV 10/15/24 23:59 PRN PRN Sodium Chloride 0 ml 10/15/24 06:00 Normal Saline 10 Ml Vial IJ 10/15/24 23:59 DIRECTED PRN Sterile Water 0 ml 10/15/24 06:00 Water,Injection,Sterile 10 Ml Vial IJ 10/15/24 23:59 DIRECTED PRN PFSH Active Problems Active Problems: Problem Status Onset Code Ulcer of left foot, limited to breakdown of skin Acute L97.521 Corns and callosities Acute L84 Dystrophia unguium Acute L60.3 Hammertoe of left foot Acute M20.42 Bunion, left foot Acute M21.612 Osteoarthritis of left knee Acute M17.12 Osteoarthritis of right knee Acute M17.11 Bilateral hearing loss due to cerumen impaction Acute H61.23 Irregular heart rhythm Acute I49.9 Screening for colon cancer Acute Z12.11 Essential hypertension Acute I10 Raynauds syndrome Acute I73.00 Medical History Medical History Diverticulosis Smoker unmotivated to quit (05/13/15) quit in August 2019 Menopause (05/16/11) Family history of breast cancer (02/04/14) mother x 2 Surgical History Surgical History Nuclear sclerotic cataract of right eye removed October 2020 Hx of eye surgery 02/2020- left macula repair and 03/2020 detached retina repair section x 2 Tobacco Smoking/Tobacco Use Status: Former Tobacco Use Passive smoking exposure: No Second hand exposure: Yes Alcohol Alcohol Intake: current Alcohol intake frequency: 0-2 drinks per day Alcohol type: hard liquor Substance Use Substance use: Never Substance use type: does not use Details: alcohol: t-2: 1/2 shot Vital Signs and Lab Results Vital Signs Most Recent Vital Signs in EMR: Most Recent Vital Signs Temp Pulse Resp BP Pulse Ox 36.1 C L 68 16 133/74 99 10/15/24 08:37 10/15/24 08:37 10/15/24 08:37 10/15/24 08:37 10/15/24 08:37 Lab Results Blood Type / Crossmatch: No Data to Display Complete Blood Count: No Data to Display Complete Metabolic Panel: No Data to Display Liver Function Panel: No Data to Display Coagulation Panel: No Data to Display Cardiac Panel: No Data to Display Arterial Blood Gas: No Data to Display Venous Blood Gas: No Data to Display Pancreas Panel: No Data to Display Thyroid Panel: 2 No Data to Display Infectious Disease: No Data to Display Blood Cultures: No Data to Display Toxicology Panel: No Data to Display Anesthesia Assessment and Plan Anesthesia History Personal History: No History of Anesthesia Complications Family History: No Family History of Anesthesia Complications Exercise Tolerance Exercise Tolerance: Metabolic Equivalents>4 Pertinent Negatives Pertinent Negatives: No Symptoms of GERD Cardiac & Pulmonary Exam Cardiac Exam: Normal S1/S2 Heart Sounds Pulmonary Exam: Clear Bilateral Breath Sounds Implantable Cardiac Device Does patient have a Pacemaker or an ICD?: No Airway Exam Known Difficult Airway: No Mallampati Class: 1 Mouth Opening: Normal (> 3cm) Thyromental Distance: Greater than 3 cm Neck Range of Motion: Full ROM Neck Circumference: Normal Teeth Condition: Loose or Chipped and Dental Caries ASA Classification ASA Score: ASA 2 Emergency Case?: No NPO Status NPO Status: NPO Clears >2 hours, Solids >8 hours Anesthesia Plan Resuscitation Status: Full Code Anesthesia Technique: General Anesthesia Airway Planned: Natural Airway Monitors Used: Standard Monitors
--- NOTE | 2024-10-15 09:36 | BOWEL_PTH ---
PATIENT: Skyla Cooper LOC: [facility] U#:[id number] AGE/SX: 73/F ROOM: RE10/15/[address]: Calderon Saleh : 1950 BED: DIS: 10/15/2024 SPEC #: [id number] RECD: 10/15/24 12:53 STATUS: TYSON REQ #: [id number] SUZANNE: 10/15/24 09:[address]: Calderon Saleh DEPT: Surgical Specimen RECD BY: Pearl Urena ENTERED: 10/15/24 12:54 SP TYPE: Bowel OTHR DR: Shannan Soto, SHAI Tissues: 1 - BIOPSY BOWEL Procedures: GROSS AND MICRO LEVEL 4 Comments: [id number]
[2024-10-15 09:41] VITALS: BP 109/72; PULSE 86; RESP 16; TEMP 36.5; O2SAT 98
--- NOTE | 2024-10-15 09:53 | ANES.PREOP_ITS ---
General Info Date of Service Date Performed: 10/15/24 Height: 5 ft 1 in Weight: 71.6 kg Body Mass Index (BMI): 29.8 Surgical Procedure: Operation Date: 10/15/24 09:35 Proposed Procedure Side Surgeon p Colonoscopy Calderon Saleh MD Actual Procedure Side Surgeon p Colonoscopy Not Applicable Calderon Saleh MD Pre-Op Diagnosis Post-Op Diagnosis Screening colonoscopy Meds Allergies and Home Medications Allergies Allergy/AdvReac Type Severity Reaction Status Date / Time No Known Allergies Allergy Verified 10/15/24 08:34 Home Medication ?Medication ?Instructions ?Recorded enalapril maleate 5 mg tablet 5 mg PO DAILY #90 tabs 08/14/24 (Vasotec) bisacodyl 5 mg tablet,delayed 5 mg PO ONCE colonscopy bowel prep 10/01/24 release (Dulcolax (bisacodyl)) #4 tabs zbbalxia-kzddedlzr-uztkqpsa 3.5 See Rx Instructions .Route Q12H #5 10/01/24 mg/mL-10,000 unit/mL-0.1% eye mL drops (Maxitrol) polyethylene glycol 3350 17 238 g PO ONCE colonoscopy prep 10/01/24 gram/dose oral powder #238 grams Current Visit Medications: Current Medications Generic Name Dose Route Start Last Admin Trade Name Freq PRN Reason Stop Dose Admin Ringer's Solution 1,000 mls @ 80 mls/hr 10/15/24 06:00 10/15/24 09:39 IV 10/15/24 23:59 80 mls/hr INFUSION NO Infusion IV Miscellaneous Supplies 1 each 10/15/24 06:00 Iv Access IV 10/15/24 23:59 DIRECTED NO Sodium Chloride 0 ml 10/15/24 06:00 Normal Saline Flush 10 Ml Syr IV 10/15/24 23:59 PRN PRN Sodium Chloride 0 ml 10/15/24 06:00 Normal Saline 10 Ml Vial IJ 10/15/24 23:59 DIRECTED PRN Sterile Water 0 ml 10/15/24 06:00 Water,Injection,Sterile 10 Ml Vial IJ 10/15/24 23:59 DIRECTED PRN PFSH Active Problems Active Problems: Problem Status Onset Code Ulcer of left foot, limited to breakdown of skin Acute L97.521 Corns and callosities Acute L84 Dystrophia unguium Acute L60.3 Hammertoe of left foot Acute M20.42 Bunion, left foot Acute M21.612 Osteoarthritis of left knee Acute M17.12 Osteoarthritis of right knee Acute M17.11 Bilateral hearing loss due to cerumen impaction Acute H61.23 Irregular heart rhythm Acute I49.9 Screening for colon cancer Acute Z12.11 Essential hypertension Acute I10 Raynauds syndrome Acute I73.00 Medical History Medical History Diverticulosis Smoker unmotivated to quit (05/13/15) quit in August 2019 Menopause (05/16/11) Family history of breast cancer (02/04/14) mother x 2 Surgical History Surgical History Nuclear sclerotic cataract of right eye removed October 2020 Hx of eye surgery 02/2020- left macula repair and 03/2020 detached retina repair section x 2 Tobacco Smoking/Tobacco Use Status: Former Tobacco Use Passive smoking exposure: No Second hand exposure: Yes Alcohol Alcohol Intake: current Alcohol intake frequency: 0-2 drinks per day Alcohol type: hard liquor Substance Use Substance use: Never Substance use type: does not use Details: alcohol: t-2: 1/2 shot Vital Signs and Lab Results Vital Signs Most Recent Vital Signs in EMR: Most Recent Vital Signs Temp Pulse Resp BP Pulse Ox 36.1 C L 68 16 133/74 99 10/15/24 08:37 10/15/24 08:37 10/15/24 08:37 10/15/24 08:37 10/15/24 08:37 Lab Results Blood Type / Crossmatch: 2 No Data to Display Complete Blood Count: No Data to Display Complete Metabolic Panel: No Data to Display Liver Function Panel: No Data to Display Coagulation Panel: No Data to Display Cardiac Panel: No Data to Display Arterial Blood Gas: No Data to Display Venous Blood Gas: No Data to Display Pancreas Panel: No Data to Display Thyroid Panel: No Data to Display Infectious Disease: No Data to Display Blood Cultures: No Data to Display Toxicology Panel: No Data to Display
--- NOTE | 2024-10-15 09:54 | W.ANESPOSTOP ---
Postoperative Evaluation Date, Time and Location Date Performed: 10/15/24 Time Performed: 09:54 Patient Location: Day Surgery Unit Vital Signs Most Recent Imported Vital Signs: Most Recent Vital Signs Temp Pulse Resp BP Pulse Ox 36.1 C L 68 16 133/74 99 10/15/24 08:37 10/15/24 08:37 10/15/24 08:37 10/15/24 08:37 10/15/24 08:37 Pain Score Most Recent Pain Score: Most Recent Pain Score Pain Level 0 10/15/24 08:37 Assessment Mental Status: Awake (Alert & Oriented to Patient Baseline) Airway and Respiratory Function: Patent airway with normal (patient baseline) respiratory exam Cardiovascular Function: Hemodynamically Stable Hydration Status: Adequately Hydrated Nausea & Vomiting: No Nausea or Vomiting Pain: Pt. Denies Any Pain Peripheral Nerve Block: Patient did not receive a nerve block
[2024-10-15 10:10] VITALS: BP 134/77; PULSE 52; RESP 16; TEMP 36.4; O2SAT 100
== END 2024-10-15 10:30 | disposition home or self-care (01) ==
PROVIDERS: PCP Nurse Practitioner Family; Visit Provider Student in an Organized Health Care Education/Training Program
PROC: 0DJD8ZZ Inspection of Lower Intestinal Tract, Via Natural or Artificial Opening Endoscopic (ICD-10-PCS; CPT 45378; principal; 2024-10-15 09:30)
DX: Z12.11 Encounter for screening for malignant neoplasm of colon (principal); I10 Essential (primary) hypertension; K62.1 Rectal polyp; K57.30 Diverticulosis of large intestine without perforation or abscess without bleeding
CPT/HCPCS: 45380; 88305; J2003; J2704

== ENCOUNTER → 2024-10-16 08:05 | Outpatient (BNVA) | payer MEDICARE, SELFPAY | PROVIDERS: PCP Nurse Practitioner Family; Referring Provider Nurse Practitioner Family; Visit Provider Podiatrist | DX: L97.521 Non-pressure chronic ulcer of other part of left foot limited to breakdown of skin; M21.612 Bunion of left foot; M20.42 Other hammer toe(s) (acquired), left foot; L60.3 Nail dystrophy; L84 Corns and callosities | CPT/HCPCS: 11042; 11055 ==

== ENCOUNTER → 2024-11-10 08:48 | Outpatient (BNVA) | payer MEDICARE, SELFPAY | PROVIDERS: PCP Nurse Practitioner Family; Referring Provider Nurse Practitioner Family; Visit Provider Physician Assistant | DX: M17.0 Bilateral primary osteoarthritis of knee (principal); R22.32 Localized swelling, mass and lump, left upper limb | CPT/HCPCS: 99213 ==

== ENCOUNTER → 2024-11-13 08:19 | Outpatient (BNVA) | payer MEDICARE, SELFPAY | PROVIDERS: PCP Nurse Practitioner Family; Referring Provider Nurse Practitioner Family; Visit Provider Podiatrist | DX: L97.521 Non-pressure chronic ulcer of other part of left foot limited to breakdown of skin (principal); M21.612 Bunion of left foot; M20.42 Other hammer toe(s) (acquired), left foot; L60.3 Nail dystrophy; L84 Corns and callosities | CPT/HCPCS: 99213 ==

== ENCOUNTER → 2024-12-09 08:22 | Outpatient (BNVA) | payer MEDICARE, SELFPAY | PROVIDERS: PCP Nurse Practitioner Family; Referring Provider Nurse Practitioner Family; Visit Provider Podiatrist | DX: M21.612 Bunion of left foot (principal); M20.42 Other hammer toe(s) (acquired), left foot; L60.3 Nail dystrophy; L84 Corns and callosities; L97.521 Non-pressure chronic ulcer of other part of left foot limited to breakdown of skin | CPT/HCPCS: 99213 ==

== ENCOUNTER → 2024-12-22 08:08 | Outpatient (BNVA) | payer MEDICARE, SELFPAY | PROVIDERS: PCP Nurse Practitioner Family; Referring Provider Nurse Practitioner Family; Visit Provider Physician Assistant | DX: M17.11 Unilateral primary osteoarthritis, right knee (principal) | CPT/HCPCS: 20610; J1010 ==

== ENCOUNTER 2025-03-30 13:51 | Outpatient (REF) | payer MEDICARE, SELFPAY ==
[2025-03-30 15:06] LABS: Abs Immature Grans 0.13 10^3/uL (0.0-0.06); HCT 35.3 % (36.0-46.0); HGB 11.9 g/dL (11.2-15.7); Immature Grans % 1.1 %; MCH 29.4 pg (27.0-33.0); MCHC 33.7 % (32.0-36.0); MCV 87 fL (80-95); MPV 10.3 fL (8.0-11.0); Platelet Count 458 10^3/uL (130-400); RBC 4.05 10^6/uL (3.93-5.22); RDW 12.7 % (11.7-14.6); RDW-SD 40.6 fL; WBC 12.32 10^3/uL (4.4-10.8)
[2025-03-30 15:23] LABS: ALT 24 U/L (14-59); AST 19 U/L (15-37); Albumin 3.2 g/dL (3.4-5.0); Alkaline Phosphatase 71 U/L (46-116); Anion Gap 10.0 mmol/L (3-11); BUN 18 mg/dL (7-18); Bilirubin, Total 0.3 mg/dL (0.2-1.0); CO2 25.0 mmol/L (21.0-32.0); Calcium 8.8 mg/dL (8.5-10.1); Chloride 99 mmol/L (98-107); Glucose 99 mg/dL (74-106); Potassium 4.5 mmol/L (3.5-5.1); Sodium 134 mmol/L (136-145); Total Protein 7.7 g/dL (6.4-8.2)
[2025-03-30 15:55] LABS: EPI 027-NAP1-B1 PRESUMPTIVE NEGATIVE
[2025-03-31 15:09] LABS: Campylobacter PCR Positive (Negative); Shiga Toxin PCR Negative (Negative); Shigella/Enteroinvasive Ecoli Negative (Negative)
== END 2025-03-30 13:52 | disposition home or self-care (01) ==
LOC: LBN 13:51
PROVIDERS: PCP Nurse Practitioner Family; Visit Provider Nurse Practitioner Family
DX: R19.7 Diarrhea, unspecified (principal); A04.5 Campylobacter enteritis
CPT/HCPCS: 80053; 87505; 85025